=== PATIENT | female | born 1945 | race Caucasian/White ===

== ENCOUNTER → 2021-08-03 08:25 | Outpatient (CLI) | payer MEDICARE, SELFPAY ==
--- NOTE | ~2021-08-03 | XR_ITS ---
XR foot LT min 3V 08/03/2021 08:48 Indication: Left foot pain Procedure: 4 views left foot Comparison: No prior studies for comparison. Findings: There is osteoarthritis of the first MTP joint. Lisfranc joint intact. No fracture, subluxa tion or dislocation. There are degenerative calcaneal enthesophytes. 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 Reviewed, dictated and finalized at location A. Impression: 1: Mild osteoarthritis of the first metatarsophalangeal joint with hallux valgu s.
== END ==
PROVIDERS: PCP Physician Assistant; Visit Provider Physician Assistant
DX: M19.072 Primary osteoarthritis, left ankle and foot (principal)
CPT/HCPCS: 73630

== ENCOUNTER → 2021-11-29 12:22 | Outpatient (CLI) | payer MEDICARE, MEDICAID, SELFPAY ==
--- NOTE | ~2021-11-29 | XR_ITS ---
XR shoulder LT min 2V 11/29/2021 12:53 Indication: Left shoulder pain after fall Procedure: 4 views left shoulder Comparison: No prior studies for comparison. Findings: There is mild polyarticular osteoarthritis of the left shoulder. No fracture, subluxation o r dislocation. There is anatomic alignment. No significant soft tissue abnormality. No foreign bodies . Impression: 1: Mild polyarticular osteoarthritis. Reviewed, dictated and finalized at location B. Impression: 1: Mild polyarticular osteoarthritis.
== END ==
PROVIDERS: PCP Physician Assistant; Visit Provider Physician Assistant
DX: M19.012 Primary osteoarthritis, left shoulder (principal)
CPT/HCPCS: 73030

== ENCOUNTER 2022-09-07 09:13 | Inpatient (IN) | payer MEDICARE, MEDICAID, SELFPAY ==
[2022-09-07] VITALS (29 sets, daily range): BP systolic 90–142; BP diastolic 37–65; PULSE 78–107; RESP 14–27; TEMP 36.4–37; O2SAT 93–98; BMI 28.8
--- NOTE | ~2022-09-07 | XR_ITS ---
EXAMINATION: XR chest 1V portable DATE: 09/07/2022 12:57 INDICATION: Cough TECHNIQUE: frontal view of the chest was obtained. COMPARISON: None FINDINGS: Patchy airspace opacity at the right lower lung zone projecting over the right hemidiaphragm concerni ng for pneumonia. Subtle opacity left lower lung zone with obscuration of the apex of the heart which could also represent pneumonia but is more likely to represent a pericardial fat pad and sagittal sh ort lingular atelectasis. No pulmonary edema, pleural effusion or pneumothorax. The cardiomediastinal silhouette is normal. IMPRESSION: 1. Airspace opacity right lower lung zone concerning for pneumonia. 2. Possible opacity at the left lower lung zone and favor pericardial fat pad and/or atelectasis over additional pneumonia. Reviewed, dictated and finalized at location B. IMPRESSION: 1. Airspace opacity right lower lung zone concerning for pneumonia. 2. Possible opacity at the left lower lung zone and favor pericardial fat pad a nd/or atelectasis over additional pneumonia.
--- NOTE | ~2022-09-07 | CT_ITS ---
Noncontrast CT scan of the cervical spine Technique: Multiple contiguous axial [address] images of the cervical spine were obtained and rec onstructed in 2D sagittal and coronal planes on the acquisition scanner. Dose reduction technique was used on this scan by utilizing automated exposure control, adjustment of the mA and/or kV according to patient size. The dose-length product (DLP) was 467.73 mGy-cm. Clinical History: Pain Findings: No fractures or dislocations. There is straightening of the normal lordosis. There is mode rate degenerative disc narrowing at C5-C6 and C6-C7. No prevertebral soft tissue swelling. At C2-C3, there is mild left neural foraminal narrowing with probable left facet arthropathy. No cent ral canal stenosis or right neural foraminal narrowing evident. At C3-C4, there is severe left facet arthropathy with left neural foraminal narrowing. Right neural f oramen preserved. No central canal stenosis. At C4-C5, there is left neural foraminal narrowing with severe left facet arthropathy, and probable e ffusion across the left facet joint. Right neural foramen preserved. No central canal stenosis. At C5-C6, there is probable minimal disc osteophyte complex. There is probable minimal bilateral neur al foraminal narrowing with mild facet arthropathy. At C6-C7, there is minimal disc osteophyte complex. There is probable bilateral neural foraminal narr owing with facet arthropathy. Impression: No fracture or subluxation of the cervical spine. Moderate degenerative spondylosis, as detailed above. Reviewed, dictated and finalized at [facility]. Impression: No fracture or subluxation of the cervical spine. Moderate degenerative spondylosis, as detailed above.
--- NOTE | ~2022-09-07 | US_ITS ---
EXAMINATION: US carotid duplex BI DATE: 09/07/2022 16:49 INDICATION: Syncope TECHNIQUE: Grayscale, color Doppler, and pulsed Doppler images of the cervical carotid arteries were obtained. The degree of vessel stenosis is placed in one of the following categories: normal, <50%, 5 0-69%, >=70% but less than near-occlusion, near-occlusion, or total occlusion. Note that percent sten osis relative to normal distal artery lumen diameter is indirectly measured from velocity measurement s as described by Yuan, et al. Radiology 2003; 229:[id number]. COMPARISON: None. FINDINGS: RIGHT: The right common carotid artery (CCA) peak systolic velocity (PSV) is 93 cm/s. The right internal car otid artery (ICA) PSV is 103 cm/s. The right ICA end-diastolic velocity (EDV) is 35 cm/s. The right I CA/CCA PSV ratio is 1.1. Grayscale and color Doppler images yield an estimate of <50% diameter reduct ion from plaque in the ICA. The external carotid artery (ECA) PSV is 121 cm/s. There is antegrade denise w in the right vertebral artery. LEFT: The left CCA PSV is 81 cm/s. The left ICA PSV is 112 cm/s. The left ICA EDV is 38 cm/s. The left ICA/ CCA PSV ratio is 1.4. Grayscale and color Doppler images yield an estimate of <50% diameter reduction from plaque in the ICA. The ECA PSV is 124 cm/s. There is antegrade flow in the left vertebral arter y. IMPRESSION: 1. <50% stenosis from minimal plaque in the right internal carotid artery. 2. <50% stenosis from minimal plaque in the left internal carotid artery. Reviewed, dictated and finalized at location B.
--- NOTE | ~2022-09-07 | CT_ITS ---
CT head without contrast Indication: Status post fall COMPARISON: 01/22/2007 Technique: Serial scans were obtained through the brain without the administration of contrast. Dose reduction technique was used on this scan by utilizing automated exposure control and iterative recon struction technique. The dose-length product (DLP) was 605.33 mGy-cm. Findings: There is no evidence of intracranial hemorrhage, mass lesion, or acute infarct. The ventri cles and subarachnoid spaces are unremarkable. Low attenuation regions are seen within the periventr icular white matter bilaterally, likely representing changes from chronic microvascular ischemic dise ase. There is no evidence of edema, mass effect or midline shift. The visualized paranasal sinuses and mastoid air cells are clear. Impression: No intracranial hemorrhage, mass, or acute infarct. Mild chronic white matter changes, as above. Reviewed, dictated and finalized at location . Impression: No intracranial hemorrhage, mass, or acute infarct. Mild chronic white matter changes, as above.
--- NOTE | 2022-09-07 09:21 | ECG_ITS ---
Measurements Intervals [place] Rate: 83 P: 55 NH: 142 QRS: -57 QRSD: 101 T: 22 QT: 387 QTc: 457 Interpretive Statements SINUS RHYTHM LEFT ANTERIOR FASCICULAR BLOCK BASELINE WANDER- V4-V5 ABNORMAL ECG NO PREVIOUS ECG AVAILABLE FOR COMPARISON Electronically Signed On 09-07-2022 9:51:02 CDT by Johny Mcgowan D.O.
--- NOTE | 2022-09-07 09:41 | ED.DIZZY ---
HPI - Dizziness General Chief Complaint: Syncope Stated Complaint: passed out x2 this AM Time Seen by Provider: 09/07/22 09:20 History of Present Illness HPI Narrative: 76-year-old female presented to the emergency department for evaluation after having symptoms of increased generalized illness yesterday including cough congestion and generalized weakness. Patient also reports she has been having multiple episodes of diarrhea. This morning patient was standing in her kitchen when she had some onset of lightheaded dizziness and patient had 2 subsequent syncopal episodes 1 resulting in an injury to her posterior scalp. Patient denies any other pain or injury. Related Data Home Medications Medication Instructions Recorded Confirmed amlodipine 5 mg tablet 5 mg PO HS 09/07/22 09/07/22 carvedilol 6.25 mg tablet 6.25 mg PO BID 09/07/22 09/07/22 rosuvastatin 10 mg tablet 10 mg PO DAILY 09/07/22 09/07/22 Allergies Allergy/AdvReac Type Severity Reaction Status Date / Time Sulfa (Sulfonamide Allergy Severe RASH Verified 09/07/22 14:57 Antibiotics) latex Allergy Mild PUFFS UP Verified 09/07/22 14:57 Review of Systems Review of Systems: All systems reviewed & are unremarkable except as noted in HPI and below PMFSH Past Medical History Medical History (Updated 09/07/22 @ 16:05 by Christina Ramirez PA-C) Anxiety Dyslipidemia Hypertension Kidney stones Surgical History Surgical History (Updated 09/07/22 @ 16:03 by Christina Ramirez PA-C) History of left breast biopsy (05/2014) History of tonsillectomy Family History Family History Mother Alzheimer disease Father Heart attack Social History Social History (Updated 09/07/22 @ 16:04 by Christina Ramirez PA-C) Social History: Surrogate medical decision maker: Nori Winston, daughter. Code status: Full code. Smoking status: Former smoker Alcohol intake: current Drinks per week: 1 Substance use: never Substance use type: does not use Lack of Transportation: No Lack of Food: Never True Current Housing: I Have Housing Concerned About Future Housing: No Difficulty Paying Gas/Electric Bills: No Difficulty Paying for Meds: No Currently Unemployed: No Education: High School Diploma/GED Difficulty w/ Childcare or Family Care: No Additional living arrangements comments: Lives alone in [place]. Additional occupation/education comments: Retired. Spiritual care concerns: No Exam Narrative: APPEARANCE: Well appearing, no pain, no distress, well-nourished. HEAD: normocephalic, scalp laceration. EYES: PERRLA/EOMI, conjunctivae clear. NOSE: Normal no drainage EARS:TMS clear with good light reflex. THROAT: Pharynx clear, no exudate. NECK: Supple. No adenopathy, no masses. RESPIRATORY: Airway patent, respirations nonlabored. Clear to auscultation bilaterally, no rales, rhonchi, wheezing. CARDIOVASCULAR: Regular rate and rhythm without murmurs rubs or gallops. ABDOMINAL: Soft, nontender, nondistended, normal bowel sounds MUSCULOSKELETAL: Moves all extremities. Strength/ROM intact, No edema, No calf tenderness. NEURO: Alert. Cranial nerves II through XII intact. Grossly intact Course Course Emergency Course: 76-year-old female presented ED for evaluation for multiple syncopal episodes, diarrhea and a head injury. Patient was also complaining of some increased cough. Laceration was repaired as described in the procedure note. Patient was afebrile but does have a leukocytosis of 12.2. Patient's CMP is similar to her baseline. UA was concerning for urinary tract infection and patient was started on Rocephin. Chest x-ray was ordered and does show concern for pneumonia. Patient was also started on azithromycin. Case was discussed with hospitalist and patient was accepted for admission. Head and neck CT were negative for acute abnormality. Patient and family
[2022-09-07] MEDS: LIDOCAINE HCL 1% LOCAL INJ 10 ML VIAL 5 ML INFILTRATE (09:49)
[2022-09-07 10:07] LABS: Glucose Point of Care 161 mg/dl (65-105)
[2022-09-07 10:07] LABS: Basophils Percent Auto 0.2 % (0.2-1.2); Eosinophils Absolute Auto 0.5 K/mm3 (0-0.3); Eosinophils Percent Auto 3.8 % (0-4.4); Hematocrit 44.8 % (37.0-47.0); Hemoglobin 14.8 g/dL (12.0-15.0); Immature Granulocyte Absolute 0.05 K/mm3 (0.00-0.031); Immature Granulocyte Percent A 0.4 % (0-0.5); Lymphocytes Absolute Auto 0.31 K/mm3 (0.9-3.2); Lymphocytes Percent Auto 2.5 % (18.3-44.2); Mean Corpuscular Hemoglobin 30.1 pg (26-34); Mean Corpuscular Volume 91.1 fl (80-100); Mean Platelet Volume 9.1 fl (7.4-10.4); Monocytes Absolute Auto 0.6 K/mm3 (0.1-0.6); Monocytes Percent Auto 4.9 % (2.6-8.5); Neutrophils Absolute Auto 10.7 K/mm3 (1.3-6.7); Neutrophils Percent Auto 88.2 % (45.5-73.1); Platelet Count Result 182 k/mm3 (150-375); Red Blood Count 4.92 M/mm3 (4.2-5.4); Red Cell Distribution Width 12.4 % (11.5-14.5); White Blood Count 12.2 K/mm3 (4.5-10.0)
[2022-09-07 10:14] LABS: Alanine Aminotransferase 40 U/L (6-35); Albumin Level 4.3 g/dL (3.5-5.1); Alkaline Phosphatase 92 U/L (38-126); Anion Gap 7 mmol/L (8-16); Aspartate Amino Transferase 56 U/L (14-36); Bilirubin,Total 0.8 mg/dL (0.2-1.3); Blood Urea Nitrogen 14 mg/dL (7-17); Calcium 8.9 mg/dL (8.4-10.2); Carbon Dioxide 27 mmol/L (22-30); Chloride 96 mmol/L (98-107); Estimated CRCL calculation 64 ml/min; Estimated Glomerular Filt Rate > 60; Glucose 153 mg/dL (65-110); Magnesium 1.8 mg/dL (1.6-2.3); Sodium 130 mmol/L (137-145)
[2022-09-07 10:17] LABS: Partial Thromboplastin Time 30.3 SECONDS (22.3-36.8); Prothrombin Time 13.8 Seconds (11.1-14.7)
[2022-09-07 10:47] LABS: Influenza A QL RT-PCR Negative (Negative); Influenza B QL RT-PCR Negative (Negative); RSV RNA, RT-PCR Negative (Negative); SARS-CoV-2 RNA PCR Negative (Negative)
[2022-09-07 11:04] LABS: Thyroid Stimulating Hormone Reflex 0.991 uIU/mL (0.465-4.68)
[2022-09-07 12:02] LABS: Appearance Urine Cloudy (Clear); Bacteria Urine None Seen /hpf; Bilirubin Urine 1+ (Negative); Blood Urine 3+ (Negative); Color Urine Dark Yellow (Yellow); Glucose Urine UA Negative (Negative); Ketones Urine 1+ mg/dL (Negative); Leukocyte Esterase Ur 1+ LEU/UL (Negative); Mucus Urine Present /lpf; Nitrate Urine Negative (Negative); Protein Urine 2+ mg/dL (Negative); RBC Urine 21-50 /hpf (0-2); Specific Grav Ur 1.027 (1.001-1.035); Squamous Epithelial Cell Urine Few /hpf (Few); WBC Urine 21-50 /hpf; pH Urine 5.5 (5.0-9.0)
[2022-09-07 12:08] LABS: Add Urine Microscopic? YES
[2022-09-07] MEDS: AZITHROMYCIN 500 MG/NS 250 ML 500 MG/250 ML BAG 250 MG IVPB (13:30)
--- NOTE | 2022-09-07 14:00 | ADMGEN ---
This patient, Priya Mcmillan, was admitted to Medical Room 246-01. Patient/family oriented to hospital policies and general routines including ID bracelet, bed and alarms, visiting hours, pain management, procedures, bathroom and other care routines, personal items, smoking policy, room service/diet, and visiting hours. Information on how to activate the Rapid Response Team has been discussed. Patient/Family are encouraged to report perceived risks to care and to ask questions if they do not understand what they are told or what they should do.
--- NOTE | 2022-09-07 15:57 | PM.IMHP ---
H&P: HPI History of Present Illness Date/Time: 09/07/22 16:20 Chief Complaint: Syncope. Narrative: This is a 76-year-old female with hypertension and hyperlipidemia who presented to the emergency department via private vehicle from home for evaluation after syncopal episode x2. The patient provides the following history. She has not been feeling well for the last couple of days with generalized malaise, weakness, chest congestion, and diarrhea. This morning while standing in her kitchen pain bills she had a sudden loss of consciousness and she woke up on the floor. She was able to get herself up and she lay in bed for a short period of time to rest. She then got back up and while walking through the dining room she once again had a syncopal episode, seemingly without warning, and she fell onto her back and sustained a laceration to her scalp. She told the ER physician that perhaps she felt a bit lightheaded prior to the episode however she denied that to me. She has no history of syncope. She denies chest pain, pleuritic pain, palpitations, and shortness of breath. She also denies fever and sweats. No nausea or vomiting. On arrival she was alert and oriented with stable vital signs however she appears orthostatic with a drop in blood pressure from 121/61 to 102/53. Labs were significant for a WBC count of 12.2, sodium 130, chloride 96, AST 56, ALT 40. Urine was cloudy with 2+ protein, 1+ ketones, 3+ blood, 1+ leukocyte esterase, 21 to 50 wbc's and rbc's, a few squamous cells, it mucus, and casts. She tested negative for influenza, RSV, and COVID. CT of the head and neck did not show any acute findings. Chest x-ray showed airspace opacities in the right lower lung zone concerning for pneumonia. In the ED she received a dose of azithromycin and ceftriaxone and she is being admitted in this setting for treatment of pneumonia and a syncopal workup. Review of Systems Review of Systems: Twelve systems were reviewed and are negative except for as per HPI. [facility] Past Medical History Medical History (Updated 09/07/22 @ 16:05 by Christina Ramirez PA-C) Anxiety Dyslipidemia Hypertension Kidney stones Surgical History Surgical History (Updated 09/07/22 @ 16:03 by Christina Ramirez PA-C) History of left breast biopsy (05/2014) History of tonsillectomy Family History Family History Mother Alzheimer disease Father Heart attack Social History Social History (Updated 09/07/22 @ 16:04 by Christina Ramirez PA-C) Social History: Surrogate medical decision maker: Nori Winston, daughter. Code status: Full code. Smoking status: Former smoker Alcohol intake: current Drinks per week: 1 Substance use: never Substance use type: does not use Lack of Transportation: No Lack of Food: Never True Current Housing: I Have Housing Concerned About Future Housing: No Difficulty Paying Gas/Electric Bills: No Difficulty Paying for Meds: No Currently Unemployed: No Education: High School Diploma/GED Difficulty w/ Childcare or Family Care: No Additional living arrangements comments: Lives alone in [place]. Additional occupation/education comments: Retired. Spiritual care concerns: No Meds Home Medications and Allergies Home Medications Medication Instructions Recorded Confirmed Type amlodipine 5 mg tablet 5 mg PO HS 09/07/22 09/07/22 History carvedilol 6.25 mg tablet 6.25 mg PO BID 09/07/22 09/07/22 History rosuvastatin 10 mg tablet 10 mg PO DAILY 09/07/22 09/07/22 History Allergies Allergy/AdvReac Type Severity Reaction Status Date / Time Sulfa (Sulfonamide Allergy Severe RASH Verified 09/07/22 14:57 Antibiotics) latex Allergy Mild PUFFS UP Verified 09/07/22 14:57 Vital Signs Vital Signs - 24 hr 09/07/22 09:31 09/07/22 09:38 09/07/22 09:21 Temperature 97.6 F Pulse Rate 80 83 Respiratory Rate 20 Blood Press
[2022-09-07] MEDS: SODIUM CHLORIDE 0.9% IV 1,000 ML 999 ML IV CONT (23:42)
[2022-09-07] MEDS: SODIUM CHLORIDE 0.9% IV 1,000 ML 100 ML IV CONT (23:43)
[2022-09-08] VITALS (22 sets, daily range): BP systolic 115–149; BP diastolic 51–74; PULSE 79–100; RESP 18; TEMP 36.3–37.1; O2SAT 95–98
[2022-09-08 05:06] LABS: Hematocrit 40.4 % (37.0-47.0); Mean Corpuscular HGB Conc 32.2 g/dl (32-36); Mean Corpuscular Hemoglobin 29.6 pg (26-34); Mean Platelet Volume 9.3 fl (7.4-10.4); Platelet Count Result 176 k/mm3 (150-375); Red Blood Count 4.39 M/mm3 (4.2-5.4); Red Cell Distribution Width 12.4 % (11.5-14.5); White Blood Count 7.3 K/mm3 (4.5-10.0)
[2022-09-08 05:18] LABS: Alanine Aminotransferase 37 U/L (6-35); Albumin Level 3.6 g/dL (3.5-5.1); Alkaline Phosphatase 73 U/L (38-126); Anion Gap 3 mmol/L (8-16); Aspartate Amino Transferase 44 U/L (14-36); Bilirubin,Total 0.4 mg/dL (0.2-1.3); Blood Urea Nitrogen 15 mg/dL (7-17); Calcium 8.5 mg/dL (8.4-10.2); Carbon Dioxide 32 mmol/L (22-30); Chloride 99 mmol/L (98-107); Estimated CRCL calculation 71 ml/min; Estimated Glomerular Filt Rate > 60; Glucose 118 mg/dL (65-110); Magnesium 2.1 mg/dL (1.6-2.3); Potassium 3.8 mmol/L (3.4-5.0); Sodium 134 mmol/L (137-145)
[2022-09-08 05:23] LABS: Hemoglobin A1C 5.8 % (<5.7)
--- NOTE | 2022-09-08 08:14 | PM.IMPN ---
Progress Note: A&P Assessment and Plan (1) Syncope: Code(s): R55 - Syncope and collapse Status: Acute Assessment and Plan: Patient reports syncope x2 without obvious prodrome or definitive cause. (2) Head injury: Code(s): S09.90XA - Unspecified injury of head, initial encounter Status: Acute Assessment and Plan: Laceration left parietal scalp closed with 4 melonie in ER (3) Pneumonia: Code(s): J18.9 - Pneumonia, unspecified organism Status: Acute Assessment and Plan: Chest x-ray findings lower lobe pneumonia and elevated white blood cell count currently treated with azithromycin and Rocephin. Will add scheduled nebulizer treatments due to wheezing and productive cough. (4) Abnormal urinalysis: Code(s): R82.90 - Unspecified abnormal findings in urine Status: Acute Assessment and Plan: Urinalysis was cloudy with protein red blood cells white blood cells urine Bacteria urine casts and mucus present as well as 1+ leukocyte esterase. Urine culture in process. No dysuria and patient is already on Rocephin for pneumonia. (5) Dehydration: Code(s): E86.0 - Dehydration Status: Acute Assessment and Plan: Urinalysis with presence of casts concerning for dehydration as well as 2 syncopal episodes. IV fluid resuscitation in the emergency department continue IV fluids upon admission. (6) Hypertension: Code(s): I10 - Essential (primary) hypertension Status: Acute Assessment and Plan: Patient was hypotensive in the emergency department blood pressure medicines currently being held. Will consider restarting tomorrow. (7) Dyslipidemia: Code(s): E78.5 - Hyperlipidemia, unspecified Status: Acute Assessment and Plan: Rosuvastatin continued Plan Patient receive IV rehydration as well as IV antibiotics and neb treatments for pneumonia. Time Spent With Patient Time with patient: 25 - 35 minutes Subjective Date/time seen: 09/08/22 08:14 Interval history: This is a 76-year-old female patient who states she was not feeling well for a couple of days prior to coming into the hospital yesterday. Patient reports that at home she passed out twice both times awakening on the kitchen floor 2nd time bleeding from the head. Patient also she has significant productive cough the last few days. While in the emergency department patient received his melonie to the left parietal scalp. She was found to have pneumonia on chest x-ray and elevated white blood cell count. Patient was initiated on ceftriaxone and azithromycin. Patient reports she did not rest very well overnight had that she is making more sputum production this morning. She denies significant difficulty breathing denies chest pain denies nausea denies vomiting. Patient denies any dysuria she did have a questionable urinalysis and culture is pending. Blood cultures are also pending. Review of Systems Review of Systems: All systems reviewed & are unremarkable except as noted in HPI and below Exam Const: General: uncomfortable Other: Patient reports frequent cough with productive sputum and generally feeling uncomfortable. HENMT: Face/Nose/Sinus: Normal nares present Mouth: Yes moist mucous membranes Eyes: General: appearance normal, both eyes and all related structures Sclera: sclerae normal Pupils: Equal, round and reactive pupils present EOM: EOMs intact bilaterally Neck: Neck: supple and no JVD Thyroid: thyroid normal Lymphatic: lymphadenopathy not noted Resp: Other: Mild occasional tachypnea, productive cough with clear sputum, mildly diminished lung sounds with an occasional expiratory wheeze especially the right middle and lower lobes Cardio: Rate: regular rate Rhythm: regular rhythm Heart sounds: no gallops, no murmurs and no rubs GI: GI Palp: Yes Soft to palpation and No Tenderness to palpation present (GI) Auscultation: monty
[2022-09-08] MEDS: ROSUVASTATIN 10 MG TABLET PO (08:27)
[2022-09-08] MEDS: SODIUM CHLORIDE 0.9% IV 1,000 ML 100 ML IV CONT (10:54)
[2022-09-08] MEDS: ALBUTEROL SULFATE NEB 2.5 MG/3 ML INH INHALATION ×3 (11:33→20:20)
[2022-09-08] MEDS: AZITHROMYCIN 500 MG/NS 250 ML 500 MG/250 ML BAG 250 MG IVPB (13:48)
--- NOTE | 2022-09-08 16:05 | ECHO_ITS ---
Patient Info Name: Priya Mcmillan Age: 76 years : 1945 Gender: Female Ht: 66 in Wt: 160 lbs BSA: 1.85 m2 HR: 88 bpm BP: 134 / 63 mmHg Technical Quality: Fair Exam Date: 09/08/2022 9:53 AM Exam Location: [facility] Pulmonary Patient Status: Inpatient Admit Date: 09/08/2022 Staff Ordering Physician: Christina Ramirez PA-C Rod Straightener: Nikolay Victor RDCS Attending Provider: Hammad Devries MD Referring Physician: Ashley GARCIA; Exam Type: CA echo doppler color flow Study Info Indications - syncope Complete two-dimensional, color flow and Doppler transthoracic echocardiogram is performed. Summary 1. Complete two-dimensional, color flow and Doppler transthoracic echocardiogram is performed. 2. Left ventricular chamber dimension is normal. 3. Left ventricular systolic function is normal, estimated at 60-65%. 4. The left ventricular diastolic function is grade I diastolic dysfunction. 5. E/e' 3 is not elevated. 6. No pulmonary hypertension, estimated pulmonary arterial systolic pressure is 31 mmHg. 7. There is small circumferential pericardial effusion. Left Ventricle E/e' 3 is not elevated. Left ventricular chamber dimension is normal. Left ventricular systolic function is normal, estimated at 60-65%. The left ventricular diastolic function is grade I diastolic dysfunction. Right Ventricle Right ventricular systolic function is normal and with normal TAPSE 2.1 cm. Right ventricular chamber dimension is normal. Left Atria Left atrial chamber dimension is normal. Right Atria Right atrial chamber dimension is normal. Aortic Valve The aortic valve is probable trileaflet. There is no aortic valve stenosis. There is no aortic valve regurgitation. Pulmonic Valve There is no pulmonic regurgitation. Mitral Valve There is no mitral valve stenosis. There is no mitral valve regurgitation. Tricuspid Valve There is no tricuspid valve regurgitation. No pulmonary hypertension, estimated pulmonary arterial systolic pressure is 31 mmHg. Pericardium/Pleural No cardiac tamponade. There is small circumferential pericardial effusion. Inferior Vena Cava Normal inferior vena cava with >50% collapse upon inspiration consistent with normal right atrial pressure, 5 mmHg. Aorta The aortic root size at the sinus of Valsalva is normal. Left Ventricular Outflow Tract Name Value Normal LVOT 2D LVOT Diameter 1.8 cm LVOT Doppler LVOT Peak Gradient 5 mmHg LVOT Mean Gradient 3 mmHg LVOT VTI 27 cm LVOT VTI/AV VTI Ratio 0.9 LVOT Stroke Volume 69 ml LVOT CO 5.9 l/min LVOT CI 3.2 l/min/m2 Pulmonic Valve Name Value Normal RVOT Doppler RVOT Peak Gradient 2 mmHg PV Doppler
[2022-09-08] MEDS: ACETAMINOPHEN 325 MG TABLET 650 MG PO (17:16)
[2022-09-09] VITALS (27 sets, daily range): BP systolic 128–169; BP diastolic 63–76; PULSE 72–104; RESP 16–20; TEMP 36.3–36.8; O2SAT 97–100
[2022-09-09] MEDS: SODIUM CHLORIDE 0.9% IV 1,000 ML 100 ML IV CONT ×2 (00:23→10:46)
[2022-09-09] MEDS: ALBUTEROL SULFATE NEB 2.5 MG/3 ML INH INHALATION ×6 (01:05→23:44)
[2022-09-09 05:16] LABS: Basophils Percent Auto 0.2 % (0.2-1.2); Eosinophils Absolute Auto 0.2 K/mm3 (0-0.3); Eosinophils Percent Auto 2.6 % (0-4.4); Hematocrit 38.7 % (37.0-47.0); Hemoglobin 12.2 g/dL (12.0-15.0); Immature Granulocyte Absolute 0.02 K/mm3 (0.00-0.031); Immature Granulocyte Percent A 0.3 % (0-0.5); Lymphocytes Absolute Auto 0.44 K/mm3 (0.9-3.2); Lymphocytes Percent Auto 7.2 % (18.3-44.2); Mean Corpuscular HGB Conc 31.5 g/dl (32-36); Mean Corpuscular Hemoglobin 29.8 pg (26-34); Mean Corpuscular Volume 94.4 fl (80-100); Mean Platelet Volume 9.3 fl (7.4-10.4); Monocytes Absolute Auto 0.9 K/mm3 (0.1-0.6); Monocytes Percent Auto 14.1 % (2.6-8.5); Neutrophils Absolute Auto 4.6 K/mm3 (1.3-6.7); Neutrophils Percent Auto 75.6 % (45.5-73.1); Platelet Count Result 186 k/mm3 (150-375); Red Cell Distribution Width 12.5 % (11.5-14.5); White Blood Count 6.1 K/mm3 (4.5-10.0)
[2022-09-09 05:26] LABS: Anion Gap 1 mmol/L (8-16); Blood Urea Nitrogen 10 mg/dL (7-17); Calcium 8.3 mg/dL (8.4-10.2); Carbon Dioxide 32 mmol/L (22-30); Chloride 104 mmol/L (98-107); Estimated CRCL calculation 84 ml/min; Estimated Glomerular Filt Rate > 60; Glucose 103 mg/dL (65-110); Potassium 4.1 mmol/L (3.4-5.0); Sodium 137 mmol/L (137-145)
[2022-09-09] MEDS: ROSUVASTATIN 10 MG TABLET PO (08:24)
--- NOTE | 2022-09-09 08:55 | PM.IMPN ---
Progress Note: A&P Assessment and Plan (1) Syncope: Code(s): R55 - Syncope and collapse Status: Acute Assessment and Plan: Patient ambulatory without dizziness lightheadedness heart racing or any other presyncopal symptoms. Continue telemetry. Continue IV fluids at decreased rate of 70 mL/hr as patient taking good PO and BP mildly elevated. (2) Pneumonia: Code(s): J18.9 - Pneumonia, unspecified organism Status: Acute Assessment and Plan: Patient no longer dyspneic, not requiring oxygen supplementation. Preliminary sputum culture gram positive cocci in clusters. Patient clinically improving, continue albuterol nebs and oral prednisone. Continue azithromycin and Rocephin pending final culture and sensitivity. (3) Abnormal urinalysis: Code(s): R82.90 - Unspecified abnormal findings in urine Status: Acute Assessment and Plan: Urinalysis was cloudy with protein red blood cells white blood cells urine Bacteria urine casts and mucus present as well as 1+ leukocyte esterase.? Urine culture in process.? No dysuria and patient is already on Rocephin for pneumonia. (4) Dehydration: Code(s): E86.0 - Dehydration Status: Acute Assessment and Plan: Blood pressure improved and back to baseline. Patient taking adequate PO. Will decrease IV fluids to 70 mL/hr. (5) Head injury: Code(s): S09.90XA - Unspecified injury of head, initial encounter Status: Acute Assessment and Plan: No signs of concussion, melonie in place, to be removed on 09/12/22 (6) Hypertension: Code(s): I10 - Essential (primary) hypertension Status: Acute Assessment and Plan: Initial low BP and home medications held. BP improved to normal 140s/70. OK to restart Coreg. (7) Dyslipidemia: Code(s): E78.5 - Hyperlipidemia, unspecified Status: Acute Assessment and Plan: Stable on home medications Time Spent With Patient Time with patient: 25 - 35 minutes Subjective Date/time seen: 09/09/22 08:55 Interval history: This is a 76-year-old female patient admitted to the hospital for syncope episode x2 along with findings of pneumonia on chest x-ray while in the emergency department. Patient has been on Rocephin and azithromycin states that she is feeling much better. Patient is ambulating around the room without sensation of dizziness or lightheadedness. Patient denies any difficulty breathing states she is still coughing clear to yellow sputum. Patient notes that she does feel wheezing in her chest but does not feel short of breath. Patient denies any chest pain, nausea or vomiting. She reports one episode of diarrhea yesterday with more normal but still slightly loose stool this morning. Review of Systems Review of Systems: All systems reviewed & are unremarkable except as noted in HPI and below Exam Narrative: Const:?? General: comfortab le appearing, stea dy gait, performin g ADLs independent ly ? HENMT:?? Face/Nose/Sinus: N ormal nares presen t? Mouth: Yes mois t mucous membranes Eyes:?? General: appearanc e normal, both eye s and all related structures? Sclera : sclerae normal? Pupils: Equal, rou nd and reactive pu pils present? EOM: EOMs intact bilat erally Neck:?? Neck: supple and n o JVD? Thyroid: th yroid normal? Lymp hatic: lymphadenop athy not noted Resp:?? Nonlabored respir atory effort on ro om air with occasi onal p
[2022-09-09] MEDS: ACETAMINOPHEN 325 MG TABLET 650 MG PO (10:46)
[2022-09-09] MEDS: AZITHROMYCIN 500 MG/NS 250 ML 500 MG/250 ML BAG 250 MG IVPB (14:13)
[2022-09-09] MEDS: carvediloL 6.25 MG TABLET PO (17:27)
[2022-09-10] VITALS (12 sets, daily range): BP systolic 110–146; BP diastolic 48–72; PULSE 72–91; RESP 18; TEMP 36.1–36.2; O2SAT 95–98
[2022-09-10] MEDS: ALBUTEROL SULFATE NEB 2.5 MG/3 ML INH INHALATION ×2 (03:43→07:34)
[2022-09-10 05:35] LABS: Basophils Percent Auto 0.3 % (0.2-1.2); Eosinophils Absolute Auto 0.2 K/mm3 (0-0.3); Eosinophils Percent Auto 3.2 % (0-4.4); Hematocrit 40.6 % (37.0-47.0); Hemoglobin 12.9 g/dL (12.0-15.0); Immature Granulocyte Absolute 0.04 K/mm3 (0.00-0.031); Immature Granulocyte Percent A 0.6 % (0-0.5); Lymphocytes Absolute Auto 0.77 K/mm3 (0.9-3.2); Lymphocytes Percent Auto 11.1 % (18.3-44.2); Mean Corpuscular HGB Conc 31.8 g/dl (32-36); Mean Corpuscular Hemoglobin 29.9 pg (26-34); Mean Platelet Volume 9.1 fl (7.4-10.4); Monocytes Absolute Auto 0.8 K/mm3 (0.1-0.6); Monocytes Percent Auto 11.8 % (2.6-8.5); Neutrophils Absolute Auto 5.1 K/mm3 (1.3-6.7); Platelet Count Result 221 k/mm3 (150-375); Red Blood Count 4.32 M/mm3 (4.2-5.4); Red Cell Distribution Width 12.6 % (11.5-14.5); White Blood Count 6.9 K/mm3 (4.5-10.0)
[2022-09-10 05:46] LABS: Anion Gap 3 mmol/L (8-16); Blood Urea Nitrogen 7 mg/dL (7-17); Calcium 9.1 mg/dL (8.4-10.2); Carbon Dioxide 35 mmol/L (22-30); Chloride 101 mmol/L (98-107); Estimated CRCL calculation 85 ml/min; Estimated Glomerular Filt Rate > 60; Glucose 100 mg/dL (65-110); Potassium 4.2 mmol/L (3.4-5.0); Sodium 139 mmol/L (137-145)
[2022-09-10] MEDS: carvediloL 6.25 MG TABLET PO (08:17)
[2022-09-10] MEDS: ROSUVASTATIN 10 MG TABLET PO (08:18)
--- NOTE | 2022-09-10 10:23 | PM.DS ---
DS: Admitting Diagnosis Discharge Date 09/10/2022 Admitting Diagnosis Syncope Head Injury Pneumonia Abnormal Urinalysis Dehydration Hypertension Dyslipidemia DS: Discharge Diagnosis Discharge Diagnosis Plan DS: Summary Hospital Course Reason for hospitalization: 76-year-old female patient was admitted to the hospital due to syncopal episode x2 resulting in head laceration. Hospital Course: Patient found to be mildly hypotensive at times. She received IV fluids and antihypertensives were held. Patient stated that she had not been feeling well for a couple days before being hospitalized. Chest x-ray shows area of pneumonia and patient had productive cough with yellow sputum. She was treated with IV Rocephin and azithromycin with improvement in symptoms each day hospitalization. Sputum culture revealed Gram-positive cocci in clusters. Doxycycline to be prescribed upon discharge. Wheezing improved daily with only minor expiratory wheeze in right base. Albuterol inhaler to be prescribed. On morning of discharge patient states that she has no dizziness or lightheadedness as well as no chest pain shortness a breath and greatly improved cough. On discharge we will have patient stop her amlodipine and follow up with primary care in the clinic to reassess need for this medication. Status at Discharge Cognitive/behavioral status at discharge: Awake, alert, oriented and very pleasant Functional status at discharge: independent ambulation Time Spent with Patient Time attestation: Total time spent providing and/or coordinating discharge services: Time spent: Less than 30 minutes Exam Narrative: Const:?? General: Comfortab le appearing, no e vidence of distres s. ? HENMT:?? Face/Nose/Sinus: N ormal nares presen t? Mouth: Yes mois t mucous membranes Eyes:?? General: appearanc e normal, both eye s and all related structures? Sclera : sclerae normal? Pupils: Equal, rou nd and reactive pu pils present? EOM: EOMs intact bilat erally Neck:?? Neck: supple and n o JVD? Thyroid: th yroid normal? Lymp hatic: lymphadenop athy not noted Resp:?? No respiratory di stress, breathing comfortably on trini m air. Improved jono ng field aeration with slight expira tory wheeze in rig ht base that clear s with cough. No r honchi or rales. N o accessory muscle use. ? Cardio:?? Rate: regular rate ? Rhythm: regular rhythm? Heart soun ds: no gallops, no murmurs and no ru bs GI:?? GI Palp: Yes Soft to palpation and N o Tenderness to pa lpation present (G I)? Auscultation: normal bowel sound s Skin:?? General skin exam: normal color and no rashes or lesio ns noted? Wounds: no wounds Neuro:?? General: gait norm al? Speech: normal speech? Motor exa m (neuro): 5/5 mot or strength presen t throughout and N ormal motor muscle
[2022-09-10] MEDS: DOXYCYCLINE HYCLATE 100 MG TABLET PO (10:49)
[2022-09-10 18:38] LABS: Pneumococcal Antigen Urine Not Detected (Not Detected)
--- NOTE | 2022-09-12 11:29 | PC.NURSE ---
Pneumococcal Ag is negative. Dr. Kayce simmons.
[2022-09-12 15:47] LABS: Mycoplasma IgM Antibody Titer 64 U/mL (<770)
--- NOTE | 2022-09-14 08:09 | PC.NURSE ---
Mycoplasma IgM- 64, which is WNL. Dr. Devries aware.
== END 2022-09-10 12:13 | disposition home or self-care (01) | DRG 194 ==
LOC: ANHED 13:02 → ANH2MED 13:46
PROVIDERS: Physician Assistant; Admitting Provider Internal Medicine; Emergency Provider Emergency Medicine; PCP Physician Assistant; Visit Provider Nurse Practitioner
DX: J18.9 Pneumonia, unspecified organism (principal); N39.0 Urinary tract infection, site not specified; E86.0 Dehydration; E78.5 Hyperlipidemia, unspecified; I10 Essential (primary) hypertension; R55 Syncope and collapse; S01.01XA Laceration without foreign body of scalp, initial encounter; F41.9 Anxiety disorder, unspecified; Z20.822 Contact with and (suspected) exposure to COVID-19; Z87.442 Personal history of urinary calculi; Z87.891 Personal history of nicotine dependence
CPT/HCPCS: 12002; 36415; 70450; 71045; 72125; 80048; 80053; 81001; 82948; 83036; 83735; 84443; 85025; 85027; 85610; 85730; 86738; 87040; 87070; 87086; 87205; 87637; 87899; 93005; 93306; 93880; 94640; 96361; 96365; 96367; 99285; A9270; G0378; J0456; J0696; J7030

== ENCOUNTER 2022-09-22 06:40 | Outpatient (CLI) | payer MEDICARE, MEDICAID, SELFPAY ==
--- NOTE | ~2022-09-22 | XR_ITS ---
XR chest 2V DATE: 09/22/2022 07:08 INDICATION: History of pneumonia. Cough. TECHNIQUE: PA and lateral views COMPARISON: 09/07/2022 portable AP chest FINDINGS: There is discoid atelectasis and/or scarring in the lower lung zones. Normal heart size. No hilar or mediastinal enlargement. No pleural effusion or pulmonary vascular con gestion or pneumothorax. Mild degenerative spurring and scoliosis of the thoracic spine. Osteopenia. IMPRESSION: Discoid atelectasis and/or scarring in the lower lung zones Reviewed, dictated and finalized at location L.
== END 2022-09-22 06:41 | disposition home or self-care (01) ==
PROVIDERS: PCP Physician Assistant; Visit Provider Physician Assistant
DX: Z87.01 Personal history of pneumonia (recurrent) (principal); R91.8 Other nonspecific abnormal finding of lung field
CPT/HCPCS: 71046

== ENCOUNTER 2023-11-13 09:22 | Outpatient (CLI) | payer MEDICARE, SELFPAY ==
--- NOTE | ~2023-11-13 | CT_ITS ---
EXAMINATION:CT lung screening DATE: 11/13/2023 09:41 INDICATION: Nicotine dependence, cigarettes, uncomplicated. Smoker who quit 1 year ago with 20 pack y ear history. TECHNIQUE: Computed tomography (CT) of the chest was performed without intravenous contrast. Automate d exposure control and iterative reconstruction technique were employed. The dose-length product (DLP ) was 114.43 mGy-cm. COMPARISON: None. FINDINGS: The lungs demonstrate mild atelectasis. No pleural effusion. There are nodules in the thyro id measuring up to 17 mm. No pleural effusion. The heart size is normal. There are coronary artery ca lcifications. No pericardial effusion. There is a small sliding hiatal hernia. There is severe thorac ic spondylosis. IMPRESSION: 1. Lung-RADS category 1S: Negative. Continue annual screening with noncontrast low-dose chest CT in 1 2 months. 2. Multinodular goiter. Consider thyroid ultrasound for risk stratification. Reviewed, dictated and finalized at location A. IMPRESSION: 1. Lung-RADS category 1S: Negative. Continue annual screening with noncontrast low-dose chest CT in 12 months. 2. Multinodular goiter. Consider thyroid ultrasound for risk stratification.
== END 2023-11-13 09:23 | disposition home or self-care (01) ==
LOC: MICIMG 09:24
PROVIDERS: PCP Physician Assistant; Visit Provider Physician Assistant
DX: Z12.2 Encounter for screening for malignant neoplasm of respiratory organs (principal); E04.2 Nontoxic multinodular goiter; Z87.891 Personal history of nicotine dependence
CPT/HCPCS: 71271

== ENCOUNTER 2023-11-24 10:19 | Outpatient (CLI) | payer MEDICARE, SELFPAY ==
--- NOTE | ~2023-11-24 | US_ITS ---
EXAMINATION: US thyroid DATE: 11/24/2023 10:38 INDICATION: Enlarged thyroid. TECHNIQUE: Multiple ultrasound images of the thyroid were obtained. COMPARISON: None. FINDINGS: The right thyroid lobe measures 5.2 x 2.1 x 2.1 cm. The left thyroid lobe measures 5.2 x 1.3 x 1.4 c m. In the left thyroid lobe, there is a 14 mm solid, very hypoechoic, wider than tall nodule with sm ooth margin and punctate echogenic foci (TI-RADS TR4). There are subcentimeter nodules in the thyroid bilaterally. In the right thyroid lobe, there is a 18 mm mixed cystic and solid, hypoechoic, wider t vail tall nodule with smooth margin and punctate echogenic foci (TR4). In the right thyroid lobe, ther e is a 17 mm spongiform nodule (TR1). IMPRESSION: 1. Multinodular goiter. Ultrasound-guided fine-needle aspiration of 2 nodules is recommended. Reviewed, dictated and finalized at location A. IMPRESSION: 1. Multinodular goiter. Ultrasound-guided fine-needle aspiration of 2 nodules i s recommended.
== END 2023-11-24 10:20 | disposition home or self-care (01) ==
LOC: MICIMG 10:21
PROVIDERS: PCP Physician Assistant; Visit Provider Physician Assistant
DX: E04.2 Nontoxic multinodular goiter (principal)
CPT/HCPCS: 76536